=== PATIENT | female | born 1990 | race Caucasian/White ===

== ENCOUNTER 2019-06-12 12:24 | Emergency (ER) | payer OTHER ==
[~2019-06-12] VITALS: Ht 162.6 cm; Wt 61.0 kg
[2019-06-12] MEDS ORDERED: HYDROCODONE/ACETAMINOPHEN 5/325MG TABLET PO ONE (13:15)
[2019-06-12] MEDS ORDERED: IBUPROFEN 800MG TABLET PO ONE (16:15)
[2019-06-12] MEDS ORDERED: CYCLOBENZAPRINE 10MG TABLET PO ONE (16:15)
[2019-06-12 16:56] VITALS: BP 123/70
== END 2019-06-12 16:56 | disposition home or self-care (01) ==
LOC: ER 12:24
DX: S16.1XXA Strain of muscle, fascia and tendon at neck level, initial encounter (principal); S20.411A Abrasion of right back wall of thorax, initial encounter; S09.90XA Unspecified injury of head, initial encounter; V91.39XA Hit or struck by falling object due to accident to unspecified watercraft, initial encounter; Y93.89 Activity, other specified; Y92.89 Other specified places as the place of occurrence of the external cause; Y99.8 Other external cause status
CPT/HCPCS: 72070; 81025; 99284